=== PATIENT | female | born 1960 | race Caucasian/White ===

== ENCOUNTER 2020-12-19 17:08 | Inpatient (IN) | payer MEDICAID ==
[~2020-12-19] VITALS: Ht 162.6 cm; Wt 102.0 kg
[2020-12-19 17:40] LABS: BASOPHILS # (AUTO) 0.1 X10'3 (0-0.2); BASOPHILS % (AUTO) 0.5 % (0-1); EOSINOPHILS % (AUTO) 0.3 % (0-6); HEMATOCRIT 44.1 % (35.0-45.0); LYMPHOCYTES # (AUTO) 1.5 X10'3 (1.1-4.8); LYMPHOCYTES % (AUTO) 12.3 % (21-51); MEAN CORPUSCULAR HEMOGLOBIN 31.8 PG (27.0-31.0); MEAN CORPUSCULAR HGB CONC 34.1 g/dL (33.0-36.5); MEAN CORPUSCULAR VOLUME 93.2 FL (78-98); MEAN PLATELET VOLUME 8.1 FL (7.4-10.4); MONOCYTES # (AUTO) 0.5 X10'3 (0-0.9); MONOCYTES % (AUTO) 3.9 % (2-12); NEUTROPHILS # (AUTO) 10.1 X10'3 (1.8-7.7); PLATELET COUNT 350 X10'3 (140-440); RED BLOOD COUNT 4.73 X10'6 (4.20-5.60); RED CELL DISTRIBUTION WIDTH 14.8 % (11.5-14.5); WHITE BLOOD COUNT 12.1 X10'3 (4.5-11.0)
[2020-12-19 17:51] LABS: ALANINE AMINOTRANSFERASE 25 U/L (12-78); ALKALINE PHOSPHATASE 78 IU/L (46-116); ANION GAP 10 (8-16); ASPARTATE AMINO TRANSFERASE 21 U/L (10-37); BILIRUBIN,TOTAL 0.6 MG/DL (0.1-1.0); BLOOD UREA NITROGEN 8 MG/DL (7-18); BUN/CREATININE RATIO 11.9 (6.6-38.0); CALCIUM 9.5 MG/DL (8.5-10.1); CHLORIDE 102 MMOL/L (99-107); CREATININE 0.67 MG/DL (0.40-0.90); GLUCOSE 126 MG/DL (70-104); LIPASE 55 U/L (73-393); POTASSIUM 3.9 MMOL/L (3.5-5.1); SODIUM 142 MMOL/L (135-145); TOTAL PROTEIN 7.9 G/DL (6.4-8.2); eGFR 89 ML/MIN
[2020-12-19] MEDS ORDERED: ketorolac trometh. 30mg/ml inj. IV ONE (19:35)
[2020-12-19] MEDS ORDERED: normal saline 1000ML IV soln IVB ONE (19:35)
[2020-12-19] MEDS ORDERED: piperacillin/tazo 3.375gm/50ml 50 ML IV ONE (20:30)
[2020-12-19] MEDS ORDERED: ondansetron/PF 4mg/2ml inj IV ONE (20:35)
[2020-12-19] MEDS: morphine 4 MG/ML inj SYRINge IV PRN (20:53)
[2020-12-19] MEDS ORDERED: potassium Cl 40MEQ/1/2NS 520ml 520 ML IV PRN ×2 (21:00)
[2020-12-19] MEDS ORDERED: magnesium Cl slow-release 64mg tablet PO PRN (21:00)
[2020-12-19] MEDS ORDERED: magnesium 2GM in 50ml NS 50 ML IV PRN (21:00)
[2020-12-19] MEDS ORDERED: magnesium 4gm in 100ml NS 100 ML IV PRN (21:00)
[2020-12-19] MEDS ORDERED: potassium Cl 20 mEq SR tablet PO PRN ×2 (21:00)
[2020-12-19] MEDS ORDERED: VERA120T19 PO (21:53)
[2020-12-19] MEDS ORDERED: NAPR-56 PO (21:53)
[2020-12-19] MEDS ORDERED: amoxicillin PO (21:53)
[2020-12-19] MEDS ORDERED: PRAV40TA3 PO (21:53)
[2020-12-19] MEDS ORDERED: AMOXICILLIN PO (21:54)
[2020-12-19] MEDS: normal saline 1000ml 1,000 ML IV SCH (21:56)
[2020-12-19] MEDS ORDERED: AMOX500T2 PO (23:07)
[2020-12-19] MEDS ORDERED: VERA240C2 PO (23:08)
[2020-12-20] VITALS (22 sets, daily range): BP systolic 91–113; BP diastolic 47–63
[2020-12-20] MEDS: morphine 4 MG/ML inj SYRINge IV PRN (00:04)
[2020-12-20 00:36] LABS: CLARITY,URINE CLEAR (Clear); COLOR,URINE YELLOW (Yellow); GLUCOSE, URINE NEGATIVE (Neg); KETONES,URINE TRACE mg/dl (Neg); LEUKOCYTE ESTERASE ,URINE TRACE (Neg); NITRITES, URINE NEGATIVE (Neg); OCCULT BLOOD,URINE NEGATIVE (Neg); PH,URINE 5.5 (4.8-8.0); PROTEIN,URINE NEGATIVE (Neg); UROBILINOGEN,URINE 0.2 E.U/dL (0.2-1.0)
[2020-12-20 00:51] LABS: UA COLLECTION TYPE OTHER
[2020-12-20 00:52] LABS: BACTERIA,URINE FEW /HPF (Neg); RBC,URINE 0-2 /HPF (0-2); SQUAMOUS EPITHELIAL CELL,UR MODERATE /LPF (FEW); WBC,URINE 0-4 /HPF (0-4)
[2020-12-20] MEDS: normal saline 1000ml 1,000 ML IV SCH ×2 (03:48→12:43)
[2020-12-20] MEDS: morphine 2 MG/ML inj. syringe IV PRN ×3 (04:20→23:17)
[2020-12-20] MEDS: ondansetron/PF 4mg/2ml inj IV PRN (04:51)
[2020-12-20 06:22] LABS: BASOPHILS % (AUTO) 0.4 % (0-1); EOSINOPHILS % (AUTO) 0 % (0-6); HEMATOCRIT 39.2 % (35.0-45.0); HEMOGLOBIN 13.2 g/dl (12.0-16.0); LYMPHOCYTES # (AUTO) 1.2 X10'3 (1.1-4.8); LYMPHOCYTES % (AUTO) 9.8 % (21-51); MEAN CORPUSCULAR HEMOGLOBIN 31.5 PG (27.0-31.0); MEAN CORPUSCULAR HGB CONC 33.6 g/dL (33.0-36.5); MEAN CORPUSCULAR VOLUME 93.6 FL (78-98); MEAN PLATELET VOLUME 8.2 FL (7.4-10.4); MONOCYTES # (AUTO) 0.9 X10'3 (0-0.9); MONOCYTES % (AUTO) 7.8 % (2-12); NEUTROPHILS # (AUTO) 9.7 X10'3 (1.8-7.7); PLATELET COUNT 282 X10'3 (140-440); RED BLOOD COUNT 4.19 X10'6 (4.20-5.60); RED CELL DISTRIBUTION WIDTH 14.6 % (11.5-14.5); WHITE BLOOD COUNT 11.8 X10'3 (4.5-11.0)
[2020-12-20 06:28] LABS: ALANINE AMINOTRANSFERASE 22 U/L (12-78); ALBUMIN 3.1 G/DL (3.4-5.0); ALKALINE PHOSPHATASE 61 IU/L (46-116); ANION GAP 8 (8-16); ASPARTATE AMINO TRANSFERASE 14 U/L (10-37); BILIRUBIN,TOTAL 0.6 MG/DL (0.1-1.0); BLOOD UREA NITROGEN 9 MG/DL (7-18); BUN/CREATININE RATIO 14.3 (6.6-38.0); CALCIUM 8.2 MG/DL (8.5-10.1); CHLORIDE 107 MMOL/L (99-107); CREATININE 0.63 MG/DL (0.40-0.90); GLUCOSE 105 MG/DL (70-104); POTASSIUM 3.9 MMOL/L (3.5-5.1); SODIUM 143 MMOL/L (135-145); TOTAL CARBON DIOXIDE 28.4 MMOL/L (24-32); TOTAL PROTEIN 6.3 G/DL (6.4-8.2); eGFR > 90 ML/MIN
--- NOTE | 2020-12-20 06:52 | NUR ---
Patient in room ORTHO 4021. I have received report from Rachael ZHOU and had the opportunity to ask questions and assume patient care.
--- NOTE | 2020-12-20 07:20 | NUR ---
Paged for EKG pre op
[2020-12-20] MEDS: K and/or MAG REPLACEMENT MC SCH ×2 (08:00→20:00)
--- NOTE | 2020-12-20 08:46 | NUR ---
PAGER ID: [phone] MESSAGE: Orlin [id number] Re: Katiehima [id number] Patient has headache and drinks caffeine can we order Excedrin caffeine Addendum: 12/20/20 at 0859 by Emily Gonzalez RN Received orders for Excedrin PO Q8H prn for migraine, Received Protonix 40mg IV x1 and addressed Verapamil Patients home medication not started Patients current vitals 97/50 HR 81, per Dr Edge not going to start this medication at this time aware patient has not had for 2 days.
[2020-12-20] MEDS ORDERED: pantoprazole 40 MG vial IV ONE (08:50)
[2020-12-20] MEDS ORDERED: aspirin/acetaminophen/caffeine tablet PO PRN (09:05)
[2020-12-20 09:07] LABS: PARTIAL THROMBOPLASTIN TIME 30 SECONDS (22-32)
--- NOTE | 2020-12-20 11:21 | NUR ---
PAGER ID: [phone] MESSAGE: Orlin [id number] Re: Nadine [id number] patients current heart rate 136 BP 113/63 per Tele monitor patient sinus tach pain level 12/08 Addendum: 12/20/20 at 1132 by Emily Gonzalez RN Per Dr Edge on the floor ok to give Verapamil now 240 mg dose x1 then restart on tomorrow night as scheduled
[2020-12-20] MEDS ORDERED: verapamil SR 120mg (sust. release) tab PO ONE (11:30)
--- NOTE | 2020-12-20 12:07 | NUR ---
Dr Cespedes aware of patient heart rate of 136-140. Dr Cespedes aware Verapamil given per Dr Edge orders. Per Dr Cespedes keep patient NPO we might have to bump her to later this afternoon once her heart rate comes down.
--- NOTE | 2020-12-20 13:30 | NUR ---
Dr Cespedes called aware per tele patient HR 98 SR.
[2020-12-20] MEDS ORDERED: BUPIVAcaine/PF 2.5 mg/ml (0.25%) 30ml vial ONE (13:55)
--- NOTE | 2020-12-20 13:56 | NUR ---
Patient report called to Anahi ZHOU in Recovery all questions answered.
--- NOTE | 2020-12-20 14:01 | NUR ---
patient left for surgery via hospital bed
[2020-12-20] MEDS ORDERED: meperidine/PF 25mg/ml syringe IV PRN ×3 (14:10)
[2020-12-20] MEDS ORDERED: ringers solution, lacted 1,000 ML IV SCH (14:10)
[2020-12-20] MEDS ORDERED: proCHLORperazine 10 MG/2 ml inj IV PRN (14:10)
[2020-12-20] MEDS ORDERED: ondansetron/PF 4mg/2ml inj IV PRN ×2 (14:10→15:25)
[2020-12-20] MEDS ORDERED: morphine 4 MG/ML inj SYRINge IV PRN (14:10)
[2020-12-20] MEDS ORDERED: morphine 2 MG/ML inj. syringe IV PRN (14:10)
[2020-12-20] MEDS ORDERED: fentaNYL/PF 50MCG/1 ML 2ML syringe ONE (14:12)
[2020-12-20] MEDS ORDERED: midazolam 1 mg/ML 2ml injection ONE (14:13)
[2020-12-20] MEDS ORDERED: propofol inj 20 ML IV ONE (14:13)
[2020-12-20] MEDS ORDERED: rocuronium 10mg/ml inj IV ONE (14:13)
[2020-12-20] MEDS ORDERED: ceFOXitin 1000 MG inj ONE ×2 (14:27)
[2020-12-20] MEDS ORDERED: neostigmine methylsulfate 1 MG/ML 10ml vial ONE (15:36)
[2020-12-20] MEDS ORDERED: glycopyrrolate 0.2mg/ml inj ONE (15:36)
--- NOTE | 2020-12-20 15:39 | NUR ---
Received from OR via surgical bed, accompanied by Anesthesiologist Faye and report given by Anesthesiolgist. Pt responsive but sleepy. VS WNL. IVF LR at 100cc/hr. Lap sites x3 with bandaids and one incision with small piece of gauze covering MARGIE site. Serosang drainage present. Pagan cath draining yellow urine. SCDs on.
--- NOTE | 2020-12-20 16:15 | NUR ---
Spoke with MD about patient's very sensitive low tolerance to pain meds, sats dropped to low 80s and required going back on mask to 10L. I requested non-narcotic pain meds, states okay to give tylenol IV.
[2020-12-20] MEDS ORDERED: acetaminophen 1,000mg/100ml IV 100 ML IV ONE (16:25)
--- NOTE | 2020-12-20 17:29 | NUR ---
Report called to receiving nurse. Transferred via surgical bed. Belongings remain in patients room. Pt alert and oriented, pain tolerable at 4/10. Special Issues communicated to receiving nurse. Emily ZHOU at bedside, VS stable, O2 sats remain at 92-94% on mask to 6L. Pt remains on mask to 6L, okayed by respiratory and Franchesca director of OR. Chart at bedside.
[2020-12-20] MEDS: piperacillin/tazo 3.375gm/50ml 50 ML IV SCH ×2 (17:37→23:54)
--- NOTE | 2020-12-20 18:40 | NUR ---
Problems reprioritized. Patient report given, questions answered & plan of care reviewed with Suzanne ZHOU.
--- NOTE | 2020-12-20 19:30 | NUR ---
changed O2 mask to NC and 4L. sats 96% on 6L. temp 98.6. will continue to monitor. taught splinting and IS.
--- NOTE | 2020-12-20 19:45 | NUR ---
talked to daughter, Linda - indu with pt for information. talking to patient at this time.
[2020-12-20] MEDS ORDERED: verapamil SR 120mg (sust. release) tab PO SCH (21:00)
[2020-12-21] MEDS ORDERED: morphine 2 MG/ML inj. syringe IV PRN (01:35)
[2020-12-21] MEDS ORDERED: ketorolac trometh. 30mg/ml inj. IV ONE (01:35)
--- NOTE | 2020-12-21 01:35 | NUR ---
zari [id number] - again Hallie Mccoy s/p Appy - uncontrolled pain. only have morphine 1mg. may I have more morphine or add Toradol plz? unable to take PO yet
--- NOTE | 2020-12-21 01:37 | NUR ---
educated pt on moving legs in bed, quad sets. deep breaths, splinting, activity q4 hours, advancing diet slowly etc. verbalized understanding
[2020-12-21 02:03] VITALS: BP 94/48
--- NOTE | 2020-12-21 02:04 | NUR ---
toradol given. pt very painful right abd.
--- NOTE | 2020-12-21 03:00 | NUR ---
pt able to ambulate a few feet further. will encourage further this am. toradol controlled pain better.
[2020-12-21] MEDS: normal saline 1000ml 1,000 ML IV SCH ×3 (03:32→23:00)
[2020-12-21] MEDS: HYDROcodone/acetaminophen 10/325mg tab PO PRN ×2 (05:46→19:06)
--- NOTE | 2020-12-21 06:09 | NUR ---
norco will be given for pain. pt able to keep crackers down. discontinued rutherford. pt calling
--- NOTE | 2020-12-21 06:12 | NUR ---
pt unable to pull IS up. encouraged pt that she needs to work on it constantly. norco given for pain - encouraged pt to sit up for breakfast. will check for PT order today. pt needs aggressive encouragement to move.
--- NOTE | 2020-12-21 06:52 | NUR ---
Patient in room ORTHO 4021. I have received report from Bri ZHOU and had the opportunity to ask questions and assume patient care.
[2020-12-21 06:53] LABS: BASOPHILS % (AUTO) 0.5 % (0-1); EOSINOPHILS % (AUTO) 0.3 % (0-6); HEMATOCRIT 36.7 % (35.0-45.0); HEMOGLOBIN 12.2 g/dl (12.0-16.0); LYMPHOCYTES % (AUTO) 11.1 % (21-51); MEAN CORPUSCULAR HEMOGLOBIN 31.4 PG (27.0-31.0); MEAN CORPUSCULAR HGB CONC 33.2 g/dL (33.0-36.5); MEAN CORPUSCULAR VOLUME 94.5 FL (78-98); MEAN PLATELET VOLUME 8.2 FL (7.4-10.4); MONOCYTES # (AUTO) 0.6 X10'3 (0-0.9); MONOCYTES % (AUTO) 7.4 % (2-12); NEUTROPHILS # (AUTO) 7.1 X10'3 (1.8-7.7); NEUTROPHILS % (AUTO) 80.7 % (42-75); PLATELET COUNT 220 X10'3 (140-440); RED BLOOD COUNT 3.88 X10'6 (4.20-5.60); RED CELL DISTRIBUTION WIDTH 14.8 % (11.5-14.5); WHITE BLOOD COUNT 8.8 X10'3 (4.5-11.0)
[2020-12-21 06:59] VITALS: BP 100/49
[2020-12-21 07:14] LABS: ALANINE AMINOTRANSFERASE 18 U/L (12-78); ALBUMIN 2.4 G/DL (3.4-5.0); ALBUMIN/GLOBULIN RATIO 0.7 (1.1-1.5); ALKALINE PHOSPHATASE 53 IU/L (46-116); ANION GAP 8 (8-16); ASPARTATE AMINO TRANSFERASE 21 U/L (10-37); BILIRUBIN,TOTAL 0.5 MG/DL (0.1-1.0); BLOOD UREA NITROGEN 9 MG/DL (7-18); BUN/CREATININE RATIO 13.2 (6.6-38.0); CHLORIDE 107 MMOL/L (99-107); CREATININE 0.68 MG/DL (0.40-0.90); GLUCOSE 86 MG/DL (70-104); POTASSIUM 3.5 MMOL/L (3.5-5.1); SODIUM 144 MMOL/L (135-145); TOTAL CARBON DIOXIDE 29.3 MMOL/L (24-32); TOTAL PROTEIN 5.7 G/DL (6.4-8.2); eGFR 88 ML/MIN
[2020-12-21] MEDS: piperacillin/tazo 3.375gm/50ml 50 ML IV SCH ×2 (07:19→17:27)
[2020-12-21] MEDS: K and/or MAG REPLACEMENT MC SCH ×2 (08:00→19:30)
[2020-12-21 10:00] VITALS: BP 97/51
[2020-12-21] MEDS: morphine 2 MG/ML inj. syringe IV PRN ×2 (12:17→15:26)
[2020-12-21 14:00] VITALS: BP 120/64
[2020-12-21 18:00] VITALS: BP 112/56
--- NOTE | 2020-12-21 18:34 | NUR ---
Problems reprioritized. Patient report given, questions answered & plan of care reviewed with Pedro ZHOU.
[2020-12-21] MEDS: lactobacillus rhamnosus 10,000 MMU CELLS/CAPSULE PO SCH (19:06)
[2020-12-21] MEDS: verapamil SR 120mg (sust. release) tab PO SCH (19:06)
--- NOTE | 2020-12-21 19:06 | NUR ---
Was notified from audiovisual aids technician that patient is in Afib 160's went to tell nurse and she is with patient and patient was symptomatic with shortness of breath. Assisted in helping getting her to bed. She is still in the 150's per Utility Bill Collector. Bri ZHOU of patient is aware.
[2020-12-21] MEDS ORDERED: verapamil SR 120mg (sust. release) tab PO ONE (19:15)
--- NOTE | 2020-12-21 19:31 | NUR ---
AT 1910 noted HR 160's from tele. pt states she is lightheaded sitting at bedside. just finished eating sips of CL dinner. laid back, noted sats 88% on 1L. increased NC to 4L - up to 94% bedside VS machine. HR 141 after PO dose of verapamil. will continue to monitor. pt states she feels less dizzy laying down and light headed is improving with rest. fan placed in room b/c A/C not keepign up. engineering waiting on part to fix. call light in reach.
--- NOTE | 2020-12-21 19:47 | NUR ---
tele reports pt converted back to SR from rapid "afib". pt resting w/o distress.
[2020-12-21 22:00] VITALS: BP 110/58
[2020-12-22] MEDS: piperacillin/tazo 3.375gm/50ml 50 ML IV SCH ×3 (00:31→15:23)
[2020-12-22] MEDS: HYDROcodone/acetaminophen 10/325mg tab PO PRN ×3 (05:27→21:16)
[2020-12-22] MEDS: normal saline 1000ml 1,000 ML IV SCH ×2 (05:48→15:23)
--- NOTE | 2020-12-22 06:25 | NUR ---
reported to days. noted pt resting. c/o pain every time she wakes up. still no bowel sounds. encouraged q2 hour walking and CDB with IS use. explained risk of bowel obstruction / ileus.
[2020-12-22 06:35] LABS: BASOPHILS % (AUTO) 0.5 % (0-1); EOSINOPHILS # (AUTO) 0.2 X10'3 (0-0.9); EOSINOPHILS % (AUTO) 1.8 % (0-6); HEMATOCRIT 37.2 % (35.0-45.0); HEMOGLOBIN 12.6 g/dl (12.0-16.0); LYMPHOCYTES # (AUTO) 0.9 X10'3 (1.1-4.8); LYMPHOCYTES % (AUTO) 10.8 % (21-51); MEAN CORPUSCULAR HEMOGLOBIN 31.9 PG (27.0-31.0); MEAN CORPUSCULAR HGB CONC 33.9 g/dL (33.0-36.5); MEAN CORPUSCULAR VOLUME 93.9 FL (78-98); MEAN PLATELET VOLUME 8.5 FL (7.4-10.4); MONOCYTES % (AUTO) 11.1 % (2-12); NEUTROPHILS # (AUTO) 6.6 X10'3 (1.8-7.7); NEUTROPHILS % (AUTO) 75.8 % (42-75); PLATELET COUNT 239 X10'3 (140-440); RED BLOOD COUNT 3.97 X10'6 (4.20-5.60); WHITE BLOOD COUNT 8.7 X10'3 (4.5-11.0)
[2020-12-22 06:51] LABS: ALANINE AMINOTRANSFERASE 21 U/L (12-78); ALBUMIN 2.4 G/DL (3.4-5.0); ALBUMIN/GLOBULIN RATIO 0.6 (1.1-1.5); ALKALINE PHOSPHATASE 63 IU/L (46-116); ANION GAP 10 (8-16); ASPARTATE AMINO TRANSFERASE 23 U/L (10-37); BILIRUBIN,TOTAL 0.4 MG/DL (0.1-1.0); BLOOD UREA NITROGEN 8 MG/DL (7-18); BUN/CREATININE RATIO 13.3 (6.6-38.0); CHLORIDE 105 MMOL/L (99-107); GLUCOSE 86 MG/DL (70-104); MAGNESIUM 2.1 MG/DL (1.5-2.4); POTASSIUM 3.5 MMOL/L (3.5-5.1); SODIUM 144 MMOL/L (135-145); TOTAL PROTEIN 6.2 G/DL (6.4-8.2); eGFR > 90 ML/MIN
--- NOTE | 2020-12-22 08:00 | NUR ---
educated pt on the benfits for digestive tract motility of ambulation, pt declined to ambulate
[2020-12-22] MEDS: lactobacillus rhamnosus 10,000 MMU CELLS/CAPSULE PO SCH ×2 (08:05→21:15)
[2020-12-22] MEDS: K and/or MAG REPLACEMENT MC SCH ×2 (08:11→20:00)
[2020-12-22 08:17] VITALS: BP 103/53
[2020-12-22 12:27] VITALS: BP 114/57
--- NOTE | 2020-12-22 12:30 | NUR ---
Again advised pt of the benefits of ambulation, pt declined to do so
[2020-12-22] MEDS: ondansetron/PF 4mg/2ml inj IV PRN ×2 (13:23→21:22)
--- NOTE | 2020-12-22 15:00 | NUR ---
patient declined to ambulate
[2020-12-22 18:00] VITALS: BP 132/67
--- NOTE | 2020-12-22 18:16 | NUR ---
Problems reprioritized. Patient report given, questions answered & plan of care reviewed with Gloria ZHOU.
--- NOTE | 2020-12-22 18:46 | NUR ---
Patient in room ORTHO 4021. I have received report from SAAD ZHOU & STUDENT and had the opportunity to ask questions and assume patient care. Addendum: 12/22/20 at 1846 by Gloria Guillen RN Amended: Links added.
[2020-12-22] MEDS: acetaminophen 325mg tablet PO PRN (18:48)
[2020-12-22] MEDS: verapamil SR 120mg (sust. release) tab PO SCH (21:15)
[2020-12-22 22:00] VITALS: BP 125/68
[2020-12-23] MEDS: piperacillin/tazo 3.375gm/50ml 50 ML IV SCH ×4 (00:11→23:34)
[2020-12-23] MEDS: normal saline 1000ml 1,000 ML IV SCH ×3 (00:19→19:15)
--- NOTE | 2020-12-23 04:00 | NUR ---
pt c/o nausea and medicated for this with iv zofran and tolerated well. eariler in shift 0 pt medicated with po norco and zofran for pain and nausea.
[2020-12-23] MEDS: ondansetron/PF 4mg/2ml inj IV PRN (04:02)
--- NOTE | 2020-12-23 05:00 | NUR ---
pt appears comfortable nausea resolved.
[2020-12-23 06:00] VITALS: BP 129/60
--- NOTE | 2020-12-23 06:27 | NUR ---
Problems reprioritized. Patient report given, questions answered & plan of care reviewed with DONNA ZHOU. Addendum: 12/23/20 at 0627 by Gloria Guillen RN Amended: Links added.
[2020-12-23 06:47] LABS: BASOPHILS % (AUTO) 0.2 % (0-1); EOSINOPHILS # (AUTO) 0.2 X10'3 (0-0.9); EOSINOPHILS % (AUTO) 2.8 % (0-6); HEMATOCRIT 35.7 % (35.0-45.0); HEMOGLOBIN 12.1 g/dl (12.0-16.0); LYMPHOCYTES # (AUTO) 0.8 X10'3 (1.1-4.8); MEAN CORPUSCULAR HEMOGLOBIN 31.7 PG (27.0-31.0); MEAN CORPUSCULAR HGB CONC 33.8 g/dL (33.0-36.5); MEAN CORPUSCULAR VOLUME 93.6 FL (78-98); MEAN PLATELET VOLUME 8.3 FL (7.4-10.4); MONOCYTES # (AUTO) 0.8 X10'3 (0-0.9); MONOCYTES % (AUTO) 9.6 % (2-12); NEUTROPHILS # (AUTO) 6.6 X10'3 (1.8-7.7); NEUTROPHILS % (AUTO) 78.4 % (42-75); PLATELET COUNT 260 X10'3 (140-440); RED BLOOD COUNT 3.82 X10'6 (4.20-5.60); WHITE BLOOD COUNT 8.4 X10'3 (4.5-11.0)
[2020-12-23 07:04] LABS: ALANINE AMINOTRANSFERASE 18 U/L (12-78); ALBUMIN 2.3 G/DL (3.4-5.0); ALBUMIN/GLOBULIN RATIO 0.6 (1.1-1.5); ALKALINE PHOSPHATASE 69 IU/L (46-116); ANION GAP 8 (8-16); ASPARTATE AMINO TRANSFERASE 19 U/L (10-37); BILIRUBIN,TOTAL 0.5 MG/DL (0.1-1.0); BLOOD UREA NITROGEN 6 MG/DL (7-18); BUN/CREATININE RATIO 12.5 (6.6-38.0); CHLORIDE 105 MMOL/L (99-107); CREATININE 0.48 MG/DL (0.40-0.90); GLUCOSE 78 MG/DL (70-104); MAGNESIUM 2.2 MG/DL (1.5-2.4); POTASSIUM 3.7 MMOL/L (3.5-5.1); SODIUM 144 MMOL/L (135-145); TOTAL CARBON DIOXIDE 31.1 MMOL/L (24-32); TOTAL PROTEIN 6.1 G/DL (6.4-8.2); eGFR > 90 ML/MIN
--- NOTE | 2020-12-23 07:20 | NUR ---
Patient in room ORTHO 4021A. I have received report from WINNIE TEJEDA and had the opportunity to ask questions and assume patient care.
[2020-12-23] MEDS: K and/or MAG REPLACEMENT MC SCH ×2 (08:00→20:00)
[2020-12-23] MEDS: lactobacillus rhamnosus 10,000 MMU CELLS/CAPSULE PO SCH ×2 (08:34→21:14)
[2020-12-23] MEDS: acetaminophen 325mg tablet PO PRN ×3 (08:34→21:14)
[2020-12-23 10:00] VITALS: BP 125/55
[2020-12-23 18:00] VITALS: BP 137/63
--- NOTE | 2020-12-23 18:30 | NUR ---
Patient in room ORTHO 4021. I have received report from Gabriela ZHOU and had the opportunity to ask questions and assume patient care.
--- NOTE | 2020-12-23 18:45 | NUR ---
Patient in room ORTHO 4021A. I have received report from JERRICA, WINNIE and had the opportunity to ask questions and assume patient care. Addendum: 12/23/20 at 1934 by Gabriela Goodman RN GAVE REPORT NOT GOT REPORT
--- NOTE | 2020-12-23 19:00 | NUR ---
Called Dr. Queen to confirm he wants MARGIE drain pulled with 165 out on day shift. He confirmed MARGIE drain to be discontinued.
[2020-12-23] MEDS: verapamil SR 120mg (sust. release) tab PO SCH (21:15)
[2020-12-23 22:00] VITALS: BP 139/64
--- NOTE | 2020-12-23 23:45 | NUR ---
MARGIE drain dcd without any complication,pt duncan procedure.
[2020-12-24] MEDS: HYDROcodone/acetaminophen 10/325mg tab PO PRN (05:06)
[2020-12-24 06:02] LABS: BASOPHILS % (AUTO) 0.3 % (0-1); EOSINOPHILS # (AUTO) 0.3 X10'3 (0-0.9); HEMATOCRIT 34.3 % (35.0-45.0); HEMOGLOBIN 11.8 g/dl (12.0-16.0); LYMPHOCYTES % (AUTO) 11.5 % (21-51); MEAN CORPUSCULAR HEMOGLOBIN 31.8 PG (27.0-31.0); MEAN CORPUSCULAR HGB CONC 34.3 g/dL (33.0-36.5); MEAN CORPUSCULAR VOLUME 92.6 FL (78-98); MONOCYTES # (AUTO) 0.8 X10'3 (0-0.9); MONOCYTES % (AUTO) 9.5 % (2-12); NEUTROPHILS # (AUTO) 6.2 X10'3 (1.8-7.7); NEUTROPHILS % (AUTO) 74.7 % (42-75); PLATELET COUNT 320 X10'3 (140-440); RED CELL DISTRIBUTION WIDTH 14.7 % (11.5-14.5); WHITE BLOOD COUNT 8.2 X10'3 (4.5-11.0)
[2020-12-24 06:16] LABS: ALANINE AMINOTRANSFERASE 21 U/L (12-78); ALBUMIN 2.2 G/DL (3.4-5.0); ALBUMIN/GLOBULIN RATIO 0.6 (1.1-1.5); ALKALINE PHOSPHATASE 81 IU/L (46-116); ANION GAP 8 (8-16); ASPARTATE AMINO TRANSFERASE 25 U/L (10-37); BILIRUBIN,TOTAL 0.5 MG/DL (0.1-1.0); BLOOD UREA NITROGEN 5 MG/DL (7-18); BUN/CREATININE RATIO 10.2 (6.6-38.0); CHLORIDE 106 MMOL/L (99-107); CREATININE 0.49 MG/DL (0.40-0.90); GLUCOSE 79 MG/DL (70-104); POTASSIUM 3.2 MMOL/L (3.5-5.1); SODIUM 145 MMOL/L (135-145); TOTAL PROTEIN 5.9 G/DL (6.4-8.2); eGFR > 90 ML/MIN
--- NOTE | 2020-12-24 06:25 | NUR ---
Problems reprioritized. Patient report given, questions answered & plan of care reviewed with Mally ZHOU.
--- NOTE | 2020-12-24 06:33 | NUR ---
Received report from Christal and security control room officer
[2020-12-24 07:05] VITALS: BP 128/64
[2020-12-24] MEDS: lactobacillus rhamnosus 10,000 MMU CELLS/CAPSULE PO SCH ×2 (07:33→20:00)
[2020-12-24] MEDS: piperacillin/tazo 3.375gm/50ml 50 ML IV SCH ×3 (07:34→23:41)
[2020-12-24] MEDS: K and/or MAG REPLACEMENT MC SCH ×3 (08:00→20:00)
[2020-12-24] MEDS: normal saline 1000ml 1,000 ML IV SCH ×2 (13:00→21:00)
--- NOTE | 2020-12-24 16:10 | NUR ---
Initial: Pt admit DX acute appendicitis s/p laparoscopic appendectomy per EMR. Advanced to full liquids diet starting dinner last night from [facility] 12/20-12/23. PO improving today 75% breakfast/lunch up from 0-25% since admit. LBM 12/19 w/ abdominal pain present per EMR likely impacting prior PO; would benefit from routine bowel care this admit as none at this time. Will monitor for diet advancement, tolerance, and additional bowel care needs. Rec: 1. advance diet as medically indicated to regular 2. monitor for ONS needs 3. routine bowel care; consider opioid antagonist post-op as medically indicated 4. scaled wt this admit Addendum: 12/24/20 at [address] Amended: Links added.
[2020-12-24] MEDS ORDERED: magnesium 4gm in 100ml NS 100 ML IV PRN (16:30)
[2020-12-24] MEDS ORDERED: potassium Cl 40MEQ/1/2NS 520ml 520 ML IV PRN (16:30)
[2020-12-24] MEDS ORDERED: magnesium Cl slow-release 64mg tablet PO PRN (16:30)
[2020-12-24] MEDS ORDERED: magnesium 2GM in 50ml NS 50 ML IV PRN (16:30)
[2020-12-24] MEDS ORDERED: potassium Cl 20 mEq SR tablet PO PRN (16:30)
[2020-12-24] MEDS: potassium Cl 20 mEq SR tablet PO PRN ×2 (17:44→22:16)
[2020-12-24 18:30] VITALS: BP 153/72
[2020-12-24] MEDS: verapamil SR 120mg (sust. release) tab PO SCH (19:49)
[2020-12-24 22:00] VITALS: BP 130/67
[2020-12-25] MEDS: acetaminophen 325mg tablet PO PRN (04:18)
[2020-12-25 06:00] VITALS: BP 135/70
[2020-12-25] MEDS ORDERED: magnesium hydroxide 30ml (MOM) UD suspension PO PRN (06:00)
[2020-12-25 06:10] LABS: ALBUMIN 2.3 G/DL (3.4-5.0); ANION GAP 7 (8-16); BLOOD UREA NITROGEN 4 MG/DL (7-18); BUN/CREATININE RATIO 8.5 (6.6-38.0); CALCIUM 8.2 MG/DL (8.5-10.1); CHLORIDE 106 MMOL/L (99-107); CREATININE 0.47 MG/DL (0.40-0.90); GLUCOSE 103 MG/DL (70-104); POTASSIUM 3.1 MMOL/L (3.5-5.1); SODIUM 147 MMOL/L (135-145); TOTAL CARBON DIOXIDE 34.5 MMOL/L (24-32); eGFR > 90 ML/MIN
--- NOTE | 2020-12-25 06:41 | NUR ---
Patient in room ORTHO 4021. I have received report from Christal RN and had the opportunity to ask questions and assume patient care.
--- NOTE | 2020-12-25 06:52 | NUR ---
Patient in room ORTHO 4021. I have received report from WINNIE Ramos and had the opportunity to ask questions and assume patient care.
[2020-12-25] MEDS: normal saline 1000ml 1,000 ML IV SCH (07:00)
[2020-12-25] MEDS ORDERED: magnesium hydroxide 30ml (MOM) UD suspension PO ONE (07:15)
[2020-12-25] MEDS: piperacillin/tazo 3.375gm/50ml 50 ML IV SCH (07:29)
[2020-12-25] MEDS: K and/or MAG REPLACEMENT MC SCH ×2 (08:00→08:04)
[2020-12-25] MEDS: potassium Cl 20 mEq SR tablet PO PRN ×2 (08:05→12:00)
[2020-12-25] MEDS: lactobacillus rhamnosus 10,000 MMU CELLS/CAPSULE PO SCH (08:10)
--- NOTE | 2020-12-25 09:09 | NUR ---
Acting as resource RN to glenn Ramos RN.
[2020-12-25 10:00] VITALS: BP 141/73
[2020-12-25 10:08] VITALS: BP 117/69
--- NOTE | 2020-12-25 11:17 | NUR ---
Acting as resource RN assumed patient care to send Rachel RN on a break.
--- NOTE | 2020-12-25 11:55 | NUR ---
Student documentation:I have reviewed and agree with all interventions, assessments performed and documented by Angelica Bonds.
--- NOTE | 2020-12-25 12:03 | NUR ---
Problems reprioritized. Patient report given, questions answered & plan of care reviewed with WINNIE Ramos.
--- NOTE | 2020-12-25 12:05 | NUR ---
PAGER ID: [phone] MESSAGE: LIZETH ZHOU [phone] RE: JEAN-PAUL BLAND [id number]. PT HAD A SMALL BM, WOULD LIKE TO DISCHARGE. THANK YOU
--- NOTE | 2020-12-25 13:47 | NUR ---
pT DISCHARGED AT 1348. iv REMOVED, TIP INTACT, NO COMPLICATIONS. ALL QUESTIONS/CONCERNS WERE ADDRESSED AND ANSWERED. BELONGINGS SENT WITH PT. PT DISCHARGED WITH IN STABLE CONDITION.
--- NOTE | 2020-12-26 14:18 | NUR ---
CASE MANAGEMENT DISCHARGE FOLLOW UP: Spoke with pt via telephone. Reports that she is not doing too good. Upon inquiry, pt states that she is having a lot of pain, had a rough night. States that she was not prescribed any pain medication at time of discharge, will follow up. Pt states had BM this AM and is ambulating within her house. Pt denies CP, fever/chills. Verbalizes understanding of s/sx requiring further evaluation/emergent assistance. Verbalizes understanding of medications. Pt states that she no longer needs BSC, states that they picked up a used one because she could not do another night of sitting on her low toilet. Verbalizes understanding of the importance in making/keeping follow-up appointments, will set up. States no further questions/concerns at this time. 1433 T/c to surgeon's office, notified staff of pt's pain level, no pain medication ordered. They will follow up with patient, if cannot they will get something together and sent to her pharmacy. Advised them of pt's preferred pharmacy and best contact number. 1439 T/c to [facility], advised that pt no longer needs BSC. They are still waiting on auth for 4WW and shower chair.
== END 2020-12-25 13:50 | disposition home or self-care (01) | DRG 224 ==
LOC: ER 17:09 → ED HOLD 20:59 → ORTHO 4S 12-20 02:54
PROVIDERS: ADMIT Family Medicine; ATTEND Internal Medicine
PROC: 0DNW4ZZ Release Peritoneum, Percutaneous Endoscopic Approach (ICD-10-PCS; 2020-12-20)
PROC: 0DTJ4ZZ Resection of Appendix, Percutaneous Endoscopic Approach (ICD-10-PCS; principal; 2020-12-20 14:13)
DX: K35.80 Unspecified acute appendicitis (principal); K56.7 Ileus, unspecified; E78.5 Hyperlipidemia, unspecified; Z20.822 Contact with and (suspected) exposure to COVID-19; I10 Essential (primary) hypertension; K66.0 Peritoneal adhesions (postprocedural) (postinfection); Z85.038 Personal history of other malignant neoplasm of large intestine; Z90.710 Acquired absence of both cervix and uterus; Z79.899 Other long term (current) drug therapy
CPT/HCPCS: 36415; 74176; 80048; 80053; 81001; 82948; 83690; 83735; 85025; 85610; 85730; 87081; 87088; 87635; 93005; 96374; 96375; 97116; 97161; 97530; 99285; A4215; A4618; A6402; A7000; C9113; G0378; J0131; J0694; J1885; J2175; J2250; J2270; J2405; J2543; J2704; J2710; J3010; J3490; J7030; J7120

== ENCOUNTER 2023-01-06 13:07 | Inpatient (IN) | payer MEDICAID ==
[~2023-01-06] VITALS: Ht 162.6 cm; Wt 93.5 kg
[~2023-01-06 13:07] MED LIST: NAPR-56 PO; PRAV40TA3 PO; VERA240C2 PO
[2023-01-06 13:43] LABS: ALANINE AMINOTRANSFERASE 27 U/L (12-78); ALBUMIN 4.1 G/DL (3.4-5.0); ALBUMIN/GLOBULIN RATIO 1.1 (1.1-1.5); ALKALINE PHOSPHATASE 64 IU/L (46-116); ANION GAP 11 (8-16); ASPARTATE AMINO TRANSFERASE 24 U/L (10-37); BILIRUBIN,TOTAL 0.3 MG/DL (0.1-1.0); BLOOD UREA NITROGEN 10 MG/DL (7-18); BUN/CREATININE RATIO 14.9 (10.0-20.0); CALCIUM 9.8 MG/DL (8.5-10.1); CHLORIDE 103 MMOL/L (99-107); CREATININE 0.67 MG/DL (0.40-0.90); GLUCOSE 84 MG/DL (70-104); POTASSIUM 3.8 MMOL/L (3.5-5.1); SODIUM 143 MMOL/L (135-145); TOTAL CARBON DIOXIDE 28.6 MMOL/L (24-32); TOTAL PROTEIN 7.7 G/DL (6.4-8.2); eGFR 89 ML/MIN
[2023-01-06 13:55] LABS: BASOPHILS # (AUTO) 0.1 X10'3 (0-0.2); BASOPHILS % (AUTO) 1.2 % (0-1); EOSINOPHILS # (AUTO) 0.1 X10'3 (0-0.9); EOSINOPHILS % (AUTO) 0.9 % (0-6); HEMATOCRIT 47.1 % (35.0-45.0); HEMOGLOBIN 15.5 g/dl (12.0-16.0); LYMPHOCYTES % (AUTO) 34.4 % (21-51); MEAN CORPUSCULAR HEMOGLOBIN 31.3 PG (27.0-31.0); MEAN CORPUSCULAR VOLUME 94.9 FL (78-98); MEAN PLATELET VOLUME 8.7 FL (7.4-10.4); MONOCYTES # (AUTO) 0.7 X10'3 (0-0.9); MONOCYTES % (AUTO) 7.6 % (2-12); NEUTROPHILS # (AUTO) 4.9 X10'3 (1.8-7.7); NEUTROPHILS % (AUTO) 55.9 % (42-75); PLATELET COUNT 352 X10'3 (140-440); RED BLOOD COUNT 4.96 X10'6 (4.20-5.60); RED CELL DISTRIBUTION WIDTH 14.6 % (11.5-14.5); WHITE BLOOD COUNT 8.7 X10'3 (4.5-11.0)
[2023-01-06] MEDS ORDERED: aspirin 81mg tab.chew PO ONE (15:40)
[2023-01-06] MEDS ORDERED: nitroGLYCERIN 0.4mg/hour patch TD ONE (15:40)
[2023-01-06] MEDS ORDERED: FOLI-101 PO (16:34)
[2023-01-06] MEDS ORDERED: acetaminophen 325mg tablet PO PRN (17:50)
[2023-01-06] MEDS ORDERED: bisacodyl 10mg suppository rectal RC PRN (17:50)
[2023-01-06] MEDS ORDERED: HYDROcodone/acetaminophen 5mg/325mg tablet PO PRN (17:50)
[2023-01-06] MEDS ORDERED: magnesium 4gm in 100ml NS 100 ML IV PRN (17:50)
[2023-01-06] MEDS ORDERED: potassium Cl 20 mEq SR tablet PO PRN ×2 (17:50)
[2023-01-06] MEDS ORDERED: magnesium 2GM in 50ml NS 50 ML IV PRN (17:50)
[2023-01-06] MEDS ORDERED: magnesium hydroxide 30ml (MOM) UD suspension PO PRN (17:50)
[2023-01-06] MEDS ORDERED: HYDROmorphone inj. 0.5 MG/0.5 ML DISP.SYRIN IV PRN (17:50)
[2023-01-06] MEDS ORDERED: PERFLUTREN PROTEIN-A MICROSPHR (Optison) 0.22 MG/ML 3ML VIAL IV ONE (17:50)
[2023-01-06] MEDS ORDERED: HYDROmorphone/PF 0.2 MG/ML SYRINGE IV PRN (17:50)
[2023-01-06] MEDS ORDERED: HYDROcodone/acetaminophen 10/325mg tab PO PRN (17:50)
[2023-01-06] MEDS ORDERED: magnesium Cl slow-release 64mg tablet PO PRN (17:50)
[2023-01-06] MEDS ORDERED: ondansetron/PF 4mg/2ml inj IV PRN (17:50)
[2023-01-06] MEDS ORDERED: potassium Cl 40MEQ/1/2NS 520ml 520 ML IV PRN (17:50)
[2023-01-06] MEDS ORDERED: mag hydrox/Alum hydrox/simeth 30ml oral suspension PO PRN (17:50)
[2023-01-06 18:08] LABS: D-DIMER < 0.19 MG/L FEU (0-0.50)
[2023-01-06] MEDS ORDERED: furosemide 40mg/4ml inj IV ONE (18:47)
[2023-01-06 19:06] LABS: HEMOGLOBIN A1C 5.1 % (4.5-6.2)
[2023-01-06 19:12] LABS: CHOL/HDL RATIO 4.4 (0.00-4.99); CHOLESTEROL 196 MG/DL (0-200); HDL CHOLESTEROL 45 MG/DL (35-60); LDL CHOLESTEROL 117 MG/DL (50-100); TRIGLYCERIDES 147 MG/DL (20-135)
[2023-01-06] MEDS: K and/or MAG REPLACEMENT MC SCH (19:44)
[2023-01-06] MEDS: docusate sod 100mg capsule PO SCH (19:45)
[2023-01-06] MEDS: acetaminophen 325mg tablet PO PRN (19:47)
[2023-01-06 20:00] VITALS: BP_SYST 102; BP_SYST 107; BP_SYST 91; BP_DIAS 54; BP_DIAS 59; BP_DIAS 60
--- NOTE | 2023-01-06 20:42 | NUR ---
REPORT CALLED TO FLOOR RN TX BY TECH TO ROOM [id number]
[2023-01-06 20:47] LABS: CLARITY,URINE CLEAR (Clear); COLOR,URINE STRAW (Yellow); GLUCOSE, URINE NEGATIVE (Neg); KETONES,URINE TRACE mg/dl (Neg); LEUKOCYTE ESTERASE ,URINE NEGATIVE (Neg); NITRITES, URINE NEGATIVE (Neg); OCCULT BLOOD,URINE NEGATIVE (Neg); PROTEIN,URINE NEGATIVE (Neg); UROBILINOGEN,URINE 0.2 E.U/dL (0.2-1.0)
[2023-01-06 20:53] LABS: UA COLLECTION TYPE CLN CATCH MIDSTREAM
[2023-01-06 21:00] VITALS: BP 107/54
[2023-01-06] MEDS ORDERED: pravastatin 40mg tablet PO SCH (21:00)
[2023-01-06] MEDS ORDERED: verapamil SR 120mg (sust. release) tab PO SCH (21:00)
[2023-01-06] MEDS: diatr meglu/diatrizoate 30ml oral sol.-(3 dose) bottle PO SCH (21:29)
[2023-01-06 22:00] VITALS: BP 100/54
[2023-01-06 23:00] VITALS: BP 96/57
[2023-01-07] VITALS (15 sets, daily range): BP systolic 87–125; BP diastolic 47–72
[2023-01-07] MEDS: acetaminophen 325mg tablet PO PRN ×2 (03:12→16:20)
--- NOTE | 2023-01-07 06:12 | NUR ---
Problems reprioritized. Patient report given, questions answered & plan of care reviewed with Kath ZHOU.
--- NOTE | 2023-01-07 06:15 | NUR ---
Patient in room ICU 2041. I have received report from WNINIE Schwartz and had the opportunity to ask questions and assume patient care.
[2023-01-07 06:23] LABS: ALANINE AMINOTRANSFERASE 23 U/L (12-78); ALBUMIN 3.5 G/DL (3.4-5.0); ALBUMIN/GLOBULIN RATIO 1.2 (1.1-1.5); ALKALINE PHOSPHATASE 53 IU/L (46-116); ANION GAP 7 (8-16); ASPARTATE AMINO TRANSFERASE 18 U/L (10-37); BASOPHILS # (AUTO) 0.1 X10'3 (0-0.2); BASOPHILS % (AUTO) 0.8 % (0-1); BILIRUBIN,TOTAL 0.6 MG/DL (0.1-1.0); BLOOD UREA NITROGEN 11 MG/DL (7-18); BUN/CREATININE RATIO 15.3 (10.0-20.0); CHLORIDE 104 MMOL/L (99-107); CREATININE 0.72 MG/DL (0.40-0.90); EOSINOPHILS # (AUTO) 0.1 X10'3 (0-0.9); EOSINOPHILS % (AUTO) 1.2 % (0-6); GLUCOSE 89 MG/DL (70-104); HEMATOCRIT 42.1 % (35.0-45.0); HEMOGLOBIN 14.2 g/dl (12.0-16.0); LYMPHOCYTES # (AUTO) 2.2 X10'3 (1.1-4.8); LYMPHOCYTES % (AUTO) 22.6 % (21-51); MAGNESIUM 2.3 MG/DL (1.5-2.4); MEAN CORPUSCULAR HEMOGLOBIN 31.6 PG (27.0-31.0); MEAN CORPUSCULAR HGB CONC 33.6 g/dL (33.0-36.5); MEAN PLATELET VOLUME 8.5 FL (7.4-10.4); MONOCYTES # (AUTO) 0.9 X10'3 (0-0.9); MONOCYTES % (AUTO) 8.8 % (2-12); NEUTROPHILS # (AUTO) 6.6 X10'3 (1.8-7.7); NEUTROPHILS % (AUTO) 66.6 % (42-75); PHOSPHORUS 4.1 MG/DL (2.3-4.5); PLATELET COUNT 303 X10'3 (140-440); POTASSIUM 3.8 MMOL/L (3.5-5.1); RED BLOOD COUNT 4.48 X10'6 (4.20-5.60); RED CELL DISTRIBUTION WIDTH 14.3 % (11.5-14.5); SODIUM 143 MMOL/L (135-145); TOTAL CARBON DIOXIDE 31.9 MMOL/L (24-32); TOTAL PROTEIN 6.5 G/DL (6.4-8.2); WHITE BLOOD COUNT 9.9 X10'3 (4.5-11.0); eGFR 82 ML/MIN
[2023-01-07] MEDS: docusate sod 100mg capsule PO SCH (07:49)
[2023-01-07] MEDS: diatr meglu/diatrizoate 30ml oral sol.-(3 dose) bottle PO SCH ×2 (07:49→10:36)
[2023-01-07] MEDS ORDERED: MULTIVIT-MIN/FERROUS GLUCONATE 9 MG/15 ML LIQUID PO SCH (08:00)
[2023-01-07] MEDS ORDERED: enoxaparin 40mg/0.4ml syringe SUBCUT SCH (08:00)
[2023-01-07] MEDS ORDERED: furosemide 40mg/4ml inj IV SCH (08:00)
[2023-01-07] MEDS: K and/or MAG REPLACEMENT MC SCH (08:00)
[2023-01-07] MEDS ORDERED: iohexol 350MG/ML 100ml bottle IV ONE (10:13)
[2023-01-07] MEDS ORDERED: multivitamins, therapeutics tablet PO SCH (11:40)
--- NOTE | 2023-01-07 16:50 | NUR ---
Discharge instructions and medications reviewed with patient, no new medications prescribed. Pt instructed to follow up with PCP and to return to the ED for any new or worsening symptoms. Pt states understanding and willingness to comply with discharge instructions. IV DC'd, cannula intact. Pt ride pending.
--- NOTE | 2023-01-07 17:00 | NUR ---
Pt escorted to front lobby via wheelchair by primary RN, accompanied by .
[2023-01-08 13:23] LABS: AFP,SERUM, TUMOR MARKER <1.8 ng/mL (0.0-9.2); CANCER ANTIGEN 125 5.5 U/mL (0.0-38.1); CARBOHYDRATE ANTIGEN 19-9 3 U/mL (0-35); CARCINOEMBRYONIC ANTIGEN 0.7 ng/mL (0.0-4.7)
== END 2023-01-07 17:10 | disposition home or self-care (01) | DRG 111 ==
LOC: ER 13:07 → ED HOLD 18:02 → ICU 2S 20:41
PROVIDERS: ADMIT Family Medicine; ATTEND Family Medicine
PROC: B4201ZZ Computerized Tomography (CT Scan) of Abdominal Aorta using Low Osmolar Contrast (ICD-10-PCS; principal; 2023-01-07)
PROC: B4241ZZ Computerized Tomography (CT Scan) of Superior Mesenteric Artery using Low Osmolar Contrast (ICD-10-PCS; 2023-01-07)
PROC: B4281ZZ Computerized Tomography (CT Scan) of Bilateral Renal Arteries using Low Osmolar Contrast (ICD-10-PCS; 2023-01-07)
PROC: B42C1ZZ Computerized Tomography (CT Scan) of Pelvic Arteries using Low Osmolar Contrast (ICD-10-PCS; 2023-01-07)
PROC: B42H1ZZ Computerized Tomography (CT Scan) of Bilateral Lower Extremity Arteries using Low Osmolar Contrast (ICD-10-PCS; 2023-01-07)
PROC: B4211ZZ Computerized Tomography (CT Scan) of Celiac Artery using Low Osmolar Contrast (ICD-10-PCS; 2023-01-07)
PROC: B32T1ZZ Computerized Tomography (CT Scan) of Left Pulmonary Artery using Low Osmolar Contrast (ICD-10-PCS; 2023-01-07)
PROC: B3201ZZ Computerized Tomography (CT Scan) of Thoracic Aorta using Low Osmolar Contrast (ICD-10-PCS; 2023-01-07)
PROC: B32S1ZZ Computerized Tomography (CT Scan) of Right Pulmonary Artery using Low Osmolar Contrast (ICD-10-PCS; 2023-01-07)
DX: R42 Dizziness and giddiness (principal); I20.0 Unstable angina; E78.00 Pure hypercholesterolemia, unspecified; I10 Essential (primary) hypertension; K21.9 Gastro-esophageal reflux disease without esophagitis; Z85.038 Personal history of other malignant neoplasm of large intestine; Z90.49 Acquired absence of other specified parts of digestive tract; Z90.711 Acquired absence of uterus with remaining cervical stump; Z79.899 Other long term (current) drug therapy
CPT/HCPCS: 36415; 70450; 71045; 71275; 74177; 80053; 80061; 81003; 82103; 82378; 83036; 83735; 83880; 84100; 84443; 84484; 85025; 85379; 86301; 86304; 87081; 93005; 93306; 97161; 97530; 99285; G0378; J1650; J1940; J3490; Q9963; Q9967

== ENCOUNTER 2023-05-18 12:14 | Emergency (ER) | payer MEDICAID, SELFPAY ==
[~2023-05-18] VITALS: Ht 162.6 cm; Wt 95.9 kg
[~2023-05-18 12:14] MED LIST changes: +FOLI-101 PO
[2023-05-18 12:22] VITALS: TEMP 98.4
[2023-05-18 12:42] LABS: BASOPHILS % (AUTO) 0.6 % (0-1); EOSINOPHILS # (AUTO) 0.1 X10'3 (0-0.9); EOSINOPHILS % (AUTO) 1.4 % (0-6); HEMOGLOBIN 14.6 g/dl (12.0-16.0); LYMPHOCYTES # (AUTO) 2.4 X10'3 (1.1-4.8); LYMPHOCYTES % (AUTO) 34.3 % (21-51); MEAN CORPUSCULAR HEMOGLOBIN 31.4 PG (27.0-31.0); MEAN CORPUSCULAR HGB CONC 33.2 g/dL (33.0-36.5); MEAN CORPUSCULAR VOLUME 94.5 FL (78-98); MEAN PLATELET VOLUME 8.1 FL (7.4-10.4); MONOCYTES # (AUTO) 0.5 X10'3 (0-0.9); MONOCYTES % (AUTO) 7.5 % (2-12); NEUTROPHILS # (AUTO) 3.8 X10'3 (1.8-7.7); NEUTROPHILS % (AUTO) 56.2 % (42-75); PLATELET COUNT 344 X10'3 (140-440); RED BLOOD COUNT 4.66 X10'6 (4.20-5.60); RED CELL DISTRIBUTION WIDTH 14.5 % (11.5-14.5); WHITE BLOOD COUNT 6.8 X10'3 (4.5-11.0)
[2023-05-18 12:59] LABS: ALANINE AMINOTRANSFERASE 33 U/L (12-78); ALBUMIN 3.7 G/DL (3.4-5.0); ALKALINE PHOSPHATASE 62 IU/L (46-116); ANION GAP 10 (8-16); ASPARTATE AMINO TRANSFERASE 21 U/L (10-37); BILIRUBIN,TOTAL 0.3 MG/DL (0.1-1.0); BLOOD UREA NITROGEN 9 MG/DL (7-18); BUN/CREATININE RATIO 14.1 (10.0-20.0); CALCIUM 9.1 MG/DL (8.5-10.1); CHLORIDE 105 MMOL/L (99-107); CREATININE 0.64 MG/DL (0.40-0.90); GLUCOSE 128 MG/DL (70-104); POTASSIUM 3.6 MMOL/L (3.5-5.1); SODIUM 143 MMOL/L (135-145); TOTAL CARBON DIOXIDE 28.2 MMOL/L (24-32); TOTAL PROTEIN 7.4 G/DL (6.4-8.2); eCRCL 77 ML/MIN; eGFR > 90 ML/MIN
[2023-05-18 13:08] LABS: PRO BRAIN NATRIURETIC PEPTIDE 137 PG/ML (0-125)
[2023-05-18] MEDS ORDERED: famotidine/PF 10 mg/ml inj IV ONE (13:15)
[2023-05-18] MEDS ORDERED: normal saline 1000ML IV soln IVB ONE (13:15)
[2023-05-18] MEDS ORDERED: ibuprofen tablet 400 MG TABLET PO ONE (14:05)
[2023-05-18] MEDS ORDERED: acetaminophen 325mg tablet PO ONE (14:05)
[2023-05-18] MEDS ORDERED: famotidine 20mg tablet PO ONE (15:30)
--- NOTE | 2023-05-18 16:32 | NUR ---
READY TO D/C PATIENT. IMPRESSION PRINTER SPOKE WITH DAUGHTER, WHO STATED SHE WOULD COME PICK PT UP SOON POSSIBLE. NO QUESTIONS FOR PT OR FAMILY AT THIS TIME.
[2023-05-18 16:34] VITALS: BP 146/82; PULSE 85; RESP 16; O2SAT 96
== END 2023-05-18 16:40 | disposition home or self-care (01) ==
LOC: ER 12:14
DX: T50.905A Adverse effect of unspecified drugs, medicaments and biological substances, initial encounter (principal); R42 Dizziness and giddiness; E78.00 Pure hypercholesterolemia, unspecified; I10 Essential (primary) hypertension; Z79.899 Other long term (current) drug therapy
CPT/HCPCS: 36415; 70450; 71045; 80053; 83880; 84484; 85025; 93005; 99285

== ENCOUNTER 2025-02-16 09:02 | Outpatient (CLI) | payer MEDICARE, MEDICAID ==
--- NOTE | 2025-02-16 12:29 | VASCULAR REPORT ---
Carotid Duplex Clinical History: Syncope Comparison: None Technique: Duplex Doppler evaluation of the extracranial carotid and vertebral arteries including color Doppler and spectral/pulsed waveform analysis was performed. Findings: RIGHT SIDE: The peak systolic velocities are 100 cm/s in the CCA, 84 cm/s in the ICA. The ICA/CCA ratio is 0.9. The external carotid artery is patent with peak systolic velocity of 122 cm/s proximally. The subclavian artery is patent with peak systolic velocity of 180 cm/s. There is appropriate antegrade flow in the right vertebral artery. LEFT SIDE: The peak systolic velocities are 128 cm/s in the CCA, 70 cm/s in the ICA. The ICA/CCA ratio is 0.8. The external carotid artery is patent with peak systolic velocity of 110 cm/s proximally. The subclavian artery is patent with peak systolic velocity of 207 cm/s. There is appropriate antegrade flow in the left vertebral artery. IMPRESSION: Less than 50% stenosis of bilateral carotid artery system. Antegrade flow in bilateral vertebral arteries and multiphasic flow in bilateral subclavian arteries. Incidental note of bilateral thyroid nodules. This can be further evaluated with nonemergent thyroid ultrasound if clinically indicated. Reference: Radiology 2003; 229:340-346 Normal ICA PSV is <125 cm/sec and no plaque or intimal thickening is visible sonographically addition al criteria include ICA/CCA PSV ratio <2.0 and ICA EDV <40 cm/sec <50% ICA stenosis ICA PSV is <125 cm/sec and plaque or intimal thickening is visible sonographically additional criteria include ICA/CCA PSV ratio <2.0 and ICA EDV <40 cm/sec 50-69% ICA stenosis ICA PSV is 125-230 cm/sec and plaque is visible sonographically additional criter ia include ICA/CCA PSV ratio of 2.0-4.0 and ICA EDV of 40-100 cm/sec 70% ICA stenosis but less than near occlusion ICA PSV is >230 cm/sec and visible plaque and luminal narrowing are seen at vasquez-scale and color Doppler ultrasound (the higher the Doppler parameters lie above the threshold of 230 cm/sec, the greater the likelihood of severe disease) additional criteria include ICA/CCA PSV ratio >4 and ICA EDV >100 cm/sec
== END 2025-02-16 23:59 | disposition home or self-care (01) ==
LOC: RAD 09:02
PROVIDERS: ATTEND Physician Assistant
DX: I65.23 Occlusion and stenosis of bilateral carotid arteries (principal)
CPT/HCPCS: 93880

== ENCOUNTER 2025-03-30 12:13 | Outpatient (CLI) | payer MEDICARE, MEDICAID ==
[~2025-03-30 12:13] MED LIST changes: +PRAV40TA17 PO; -PRAV40TA3 PO
--- NOTE | 2025-03-30 15:43 | RADIOLOGY REPORT ---
EXAM: ESOPHAGRAM HISTORY: DYSPHAGIA, UNSPECIFIED 1.4mins, 80.04 mGY FLUORO TIME: 1.4 minutes. AIR KERMA: 80.04 mGy TECHNIQUE: The patient was positioned upright at the fluoroscopy unit and instructed to swallow both thick and thin barium contrast material under fluoroscopic examination. FINDINGS: Normal swallow reflex. No aspiration. There is a mid esophageal anterior fairly smooth extrinsic compression which may represent an apparent pulmonary vessel without abnormal tertiary contractions. No mucosal ulcerations seen throughout the esophagus. There is adequate distensibility of the esophagus. Contrast proceeded appropriately through the gastric lumen without restriction. No gastroesophageal reflux was noted while the patient was in upright position. IMPRESSION: 1. Normal esophogram except for extrinsic impression at the mid esophagus which may represent an apparent pulmonary vessel, this can be confirmed with contrast-enhanced CT chest examinations. The esophagus demonstrates full distensibility however. 2. No reflux seen. No evidence of hiatal hernia.
== END 2025-03-30 23:59 | disposition home or self-care (01) ==
LOC: RAD 12:13
PROVIDERS: ATTEND Physician Assistant
DX: R13.10 Dysphagia, unspecified (principal)
CPT/HCPCS: 74220

== ENCOUNTER 2025-04-10 08:31 | Outpatient (CLI) | payer MEDICARE, MEDICAID ==
[2025-04-10] MEDS ORDERED: GADOTERATE MEGLUMINE 7.5 MMOL/15 ML VIAL IV ONE (10:01)
== END 2025-04-10 23:59 | disposition home or self-care (01) ==
LOC: MRI 08:31
PROVIDERS: ATTEND Physician Assistant
DX: R25.3 Fasciculation (principal)
CPT/HCPCS: 70553; A9575